=== PATIENT | female | born 1935 | race Caucasian/White ===

== ENCOUNTER 2022-11-04 18:52 | Emergency (ER) | payer MEDICARE, MEDICAID ==
[~2022-11-04] VITALS: Ht 157.5 cm; Wt 51.0 kg
[2022-11-04 18:54] VITALS: BP 150/80
[2022-11-04] MEDS ORDERED: BACITRACIN ZINC OINT UDPKT TOP ONE (19:00)
[2022-11-04] MEDS ORDERED: BO1 TP (19:36)
[2022-11-04] MEDS ORDERED: CEPH500C2 MT (19:36)
== END 2022-11-04 21:57 | disposition home or self-care (01) ==
LOC: ER 18:52
DX: S90.512A Abrasion, left ankle, initial encounter (principal); X58.XXXA Exposure to other specified factors, initial encounter; Y93.89 Activity, other specified; Y92.89 Other specified places as the place of occurrence of the external cause; Y99.8 Other external cause status
CPT/HCPCS: 99283